=== PATIENT | female | born 1955 | race Caucasian/White ===

== ENCOUNTER 2018-09-26 14:34 | Observation (INO) | payer MEDICAID, OTHER ==
--- NOTE | 2018-09-26 14:59 | CT ---
EXAMINATION: Non contrast CT head. Coronal and sagittal reformats. HISTORY: Pain FINDINGS: No evidence of intra or extra axial hemorrhage, mass, midline shift, or edema. Mild symmetric ventricular prominence. Mild to moderate periventricular subcortical white matter hypodensities. Small clip or coil projects near the terminal left ICA. No hypoattenuation changes in the major vascular territories to suggest acute infarct. No abnormal intracranial calcifications are detected. No evidence of substantial vascular calcifications. Paranasal sinuses and mastoid air cells are well aerated without substantial findings. Pituitary fossa appears unremarkable. Orbits and globes are symmetric. Calvarium is intact. No evidence of skull fracture. IMPRESSION: 1. No acute intracranial findings. 2. Mild to moderate small vessel ischemic changes. 3. 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 Above findings were called to the area at 2:55 PM.
--- NOTE | 2018-09-26 15:17 | CR ---
EXAMINATION: Portable chest radiograph. HISTORY: Shortness of breath. Comparison: 09/27/2012. FINDINGS: The trachea is midline. The cardiomediastinal silhouette is within normal limits. No pulmonary infiltrates, effusions or pneumothorax. Calcified granuloma within the left apex. Osseous structures appear unremarkable. IMPRESSION: No acute cardiopulmonary process.
[2018-09-26 15:33] LABS: CHLORIDE,CL 109 mmol/L (98-107); SODIUM,NA 144 mmol/L (136-145)
[2018-09-26] MEDS: Sodium Chloride 0.9% 1,000 ML IV SCH (16:13)
[2018-09-26] MEDS ORDERED: LORazepam 2 MG/ML SDV IVPUSH ONE (16:27)
[2018-09-26] MEDS ORDERED: Scopolamine 1.5 MG Transdermal Patch TRDERM PRN (16:28)
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
[2018-09-26] MEDS ORDERED: Ondansetron 4 MG/2 ML SDV IVPUSH PRN (17:41)
[2018-09-26] MEDS ORDERED: LORazepam 2 MG/ML SDV IVPUSH PRN (17:51)
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
[2018-09-26] MEDS: Famotidine 20 MG Tab PO SCH (21:20)
[2018-09-26] MEDS: Carvedilol 3.125 MG Tab PO SCH (21:20)
[2018-09-26] MEDS: oxyCODONE 5 MG Tab PO PRN (21:20)
[2018-09-27] MEDS: Sodium Chloride 0.9% 1,000 ML IV SCH ×2 (01:35→06:31)
[2018-09-27] MEDS: oxyCODONE 5 MG Tab PO PRN ×2 (01:35→09:58)
[2018-09-27] MEDS ORDERED: Levothyroxine 25 MCG Tab PO SCH (07:30)
--- NOTE | 2018-09-27 09:28 | PCM.PN ---
<José Antonio Mejia - Last Filed: 09/27/18 09:26> - General Info Date of Service: 09/27/18 Subjective Update: Feels better today, citing improvement in headache, nausea vomiting. No new focal findings. - Review of Systems General: Reports: Other (negative except for hpi) - Patient Data Vitals - Most Recent: Last Vital Signs Temp 36.2 C 09/27/18 08:02 Pulse 67 09/27/18 08:02 Resp 16 09/27/18 08:02 BP 111/54 L 09/27/18 08:02 Pulse Ox 97 09/27/18 08:02 Weight - Most Recent: 69.3 kg I&O - Last 24 Hours: Intake & Output 09/26/18 09/27/18 09/27/18 22:59 06:59 14:59 Intake Total 100 Output Total 300 Balance -200 Lab Results Last 24 Hours: Laboratory Results - last 24 hr 09/26/18 09/26/18 09/26/18 Range/Units 14:38 14:38 14:38 WBC 7.41 (4.0-11.0) K/uL RBC 4.05 L (4.30-5.90) M/uL Hgb 11.9 L (12.0-16.0) g/dL Hct 35.3 L (36.0-46.0) % MCV 87.2 (80.0-98.0) fL MCH 29.4 (27.0-32.0) pg MCHC 33.7 (31.0-37.0) g/dL RDW Std Deviation 46.1 (28.0-62.0) fl RDW Coeff of Genny 15 (11.0-15.0) % Plt Count 256 (150-400) K/uL MPV 10.70 (7.40-12.00) fL Neut % (Auto) 51.3 (48.0-80.0) % Lymph % (Auto) 38.6 (16.0-40.0) % [place] % (Auto) 6.7 (0.0-15.0) % Eos % (Auto) 3.1 (0.0-7.0) % Baso % (Auto) 0.3 (0.0-1.5) % Neut # (Auto) 3.8 (1.4-5.7) K/uL Lymph # (Auto) 2.9 H (0.6-2.4) K/uL [place] # (Auto) 0.5 (0.0-0.8) K/uL Eos # (Auto) 0.2 (0.0-0.7) K/uL Baso # (Auto) 0.0 (0.0-0.1) K/uL Nucleated RBC % 0.0 /100WBC Nucleated RBCs # 0 K/uL INR 1.01 Sodium 144 (136-145) mmol/L Potassium 4.5 (3.5-5.1) mmol/L Chloride 109 H (98-107) mmol/L Carbon Dioxide 22.9 (21.0-32.0) mmol/L BUN 24 H (7.0-18.0) mg/dL Creatinine 1.7 H (0.6-1.0) mg/dL Est Cr Clr Drug Dosing TNP Estimated GFR (MDRD) 30.6 ml/min Glucose 112 H (74-106) mg/dL Calcium 9.4 (8.5-10.1) mg/dL Total Bilirubin 0.3 (0.2-1.0) mg/dL AST 18 (15-37) IU/L ALT 27 (14-63) IU/L Alkaline Phosphatase 104 (46-116) U/L Troponin I < 0.050 (0.000-0.056) ng/mL Total Protein 7.9 (6.4-8.2) g/dL Albumin 4.0 (3.4-5.0) g/dL Globulin 3.9 (2.6-4.0) g/dL Albumin/Globulin Ratio 1.0 (0.9-1.6) Triglycerides (0-200) mg/dL Cholesterol (50-200) mg/dL LDL Cholesterol, Calc (60-180) mg/dL VLDL Cholesterol (5-55) mg/dL HDL Cholesterol (40-60) mg/dL Cholesterol/HDL Ratio (3.3-6.0) Urine Color Urine Appearance Urine pH (5.0-8.0) Ur Specific [place] (1.001-1.035) Urine Protein (NEGATIVE) mg/dL Urine Glucose (UA) (NEGATIVE) mg/dL Urine Ketones (NEGATIVE) mg/dL Urine Occult Blood (NEGATIVE) Urine Nitrite (NEGATIVE) Urine Bilirubin (NEGATIVE) Urine Urobilinogen (<2.0) EU/dL Ur Leukocyte Esterase (NEGATIVE) Urine Opiates Screen (NEGATIVE) Ur Oxycodone Screen (NEGATIVE) Urine Methadone Screen (NEGATIVE) Ur Barbiturates Screen (NEGATIVE) Ur Phencyclidine Scrn (NEGATIVE) Ur Amphetamine Screen (NEGATIVE) U Methamphetamines Scrn (NEGATIVE) U Benzodiazepines Scrn (NEGATIVE) U Cocaine Metab Screen (NEGATIVE) U Marijuana (THC) Screen (NEGATIVE) Ethyl Alcohol mg/dL 09/26/18 09/26/18 09/26/18 Range/Units 14:38 15:17 15:17 WBC (4.0-11.0) K/uL RBC (4.30-5.90) M/uL Hgb (12.0-16.0) g/dL Hct (36.0-46.0) % MCV (80.0-98.0) fL MCH (27.0-32.0) pg MCHC (31.0-37.0) g/dL RDW Std Deviation (28.0-62.0) fl RDW Coeff of Genny (11.0-15.0) % Plt Count (150-400) K/uL MPV (7.40-12.00) fL Neut % (Auto) (48.0-80.0) % Lymph % (Auto) (16.0-40.0) % [place] % (Auto) (0.0-15.0) % Eos % (Auto) (0.0-7.0) % Baso % (Auto) (0.0-1.5) % Neut # (Auto) (1.4-5.7) K/uL Lymph # (Auto) (0.6-2.4) K/uL [place] # (Auto) (0.0-0.8) K/uL Eos # (Auto) (0.0-0.7) K/uL Baso # (Auto) (0.0-0.1) K/uL Nucleated RBC % /100WBC Nucleated RBCs # K/uL INR Sodium (136-145) mmol/L Potassium (3.5-5.1) mmol/L Chloride (98-107) mmol/L Carbon Dioxide (21.0-32.0) mmol/L BUN (7.0-18.0) mg/dL Creatinine (0.6-1.0) mg/dL Est Cr Clr Drug Dosing Estimated GFR (MDRD) ml/min Glucose (74-106) mg/dL Calcium (8.5-10.1) mg/dL Total Bilirubin (0.2-1.0) mg/dL AST (15-37) IU/L ALT (14-63) IU/L Alkaline Phosphatase (46-116) U/L Troponin I (0.000-0.056) ng/mL Total Protein (6.4-8.2) g/dL Albumin (3.4-5.0) g/dL Globulin (2.6-4.0) g/dL Albumin/Globulin Ratio (0.9-1.6) Triglycerides (0-200) mg/dL Cholesterol (50-200) mg/dL LDL Cholesterol, Calc (60-180) mg/dL VLDL Cholesterol (5-55) mg/dL HDL Cholesterol (40-60) mg/dL Cholesterol/HDL Ratio (3.3-6.0) Urine Color YELLOW Urine Appearance CLEAR Urine pH 7.0 (5.0-8.0) Ur Specific [place] <= 1.005 (1.001-1.035) Urine Protein NEGATIVE (NEGATIVE) mg/dL Urine Glucose (UA) NEGATIVE (NEGATIVE) mg/dL Urine Ketones NEGATIVE (NEGATIVE) mg/dL Urine Occult Blood NEGATIVE (NEGATIVE) Urine Nitrite NEGATIVE (NEGATIVE) Urine Bilirubin NEGATIVE (NEGATIVE) Urine Urobilinogen 0.2 (<2.0) EU/dL Ur Leukocyte Esterase NEGATIVE (NEGATIVE) Urine Opiates Screen NEGATIVE (NEGATIVE) Ur Oxycodone Screen NEGATIVE (NEGATIVE) Urine Methadone Screen NEGATIVE (NEGATIVE) Ur Barbiturates Screen NEGATIVE (NEGATIVE) Ur Phencyclidine Scrn NEGATIVE (NEGATIVE) Ur Amphetamine Screen NEGATIVE (NEGATIVE) U Methamphetamines Scrn NEGATIVE (NEGATIVE) U Benzodiazepines Scrn NEGATIVE (NEGATIVE) U Cocaine Metab Screen NEGATIVE (NEGATIVE) U Marijuana (THC) Screen NEGATIVE (NEGATIVE) Ethyl Alcohol < 3.0 mg/dL 09/27/18 Range/Units 05:40 WBC (4.0-11.0) K/uL RBC (4.30-5.90) M/uL Hgb (12.0-16.0) g/dL Hct (36.0-46.0) % MCV (80.0-98.0) fL MCH (27.0-32.0) pg MCHC (31.0-37.0) g/dL RDW Std Deviation (28.0-62.0) fl RDW Coeff of Genny (11.0-15.0) % Plt Count (150-400) K/uL MPV (7.40-12.00) fL Neut % (Auto) (48.0-80.0) % Lymph % (Auto) (16.0-40.0) % [place] % (Auto) (0.0-15.0) % Eos % (Auto) (0.0-7.0) % Baso % (Auto) (0.0-1.5) % Neut # (Auto) (1.4-5.7) K/uL Lymph # (Auto) (0.6-2.4) K/uL [place] # (Auto) (0.0-0.8) K/uL Eos # (Auto) (0.0-0.7) K/uL Baso # (Auto) (0.0-0.1) K/uL Nucleated RBC % /100WBC Nucleated RBCs # K/uL INR Sodium 145 (136-145) mmol/L Potassium 4.6 (3.5-5.1) mmol/L Chloride 112 H (98-107) mmol/L Carbon Dioxide 24.5 (21.0-32.0) mmol/L BUN 24 H (7.0-18.0) mg/dL Creatinine 1.5 H (0.6-1.0) mg/dL Est Cr Clr Drug Dosing 36.87 Estimated GFR (MDRD) 35.3 ml/min Glucose 94 (74-106) mg/dL Calcium 8.7 (8.5-10.1) mg/dL Total Bilirubin (0.2-1.0) mg/dL AST (15-37) IU/L ALT (14-63) IU/L Alkaline Phosphatase (46-116) U/L Troponin I (0.000-0.056) ng/mL Total Protein (6.4-8.2) g/dL Albumin (3.4-5.0) g/dL Globulin (2.6-4.0) g/dL Albumin/Globulin Ratio (0.9-1.6) Triglycerides 154 (0-200) mg/dL Cholesterol 200 (50-200) mg/dL LDL Cholesterol, Calc 129 (60-180) mg/dL VLDL Cholesterol 30 (5-55) mg/dL HDL Cholesterol 40 (40-60) mg/dL Cholesterol/HDL Ratio 5.0 (3.3-6.0) Urine Color Urine Appearance Urine pH (5.0-8.0) Ur Specific [place] (1.001-1.035) Urine Protein (NEGATIVE) mg/dL Urine Glucose (UA) (NEGATIVE) mg/dL Urine Ketones (NEGATIVE) mg/dL Urine Occult Blood (NEGATIVE) Urine Nitrite (NEGATIVE) Urine Bilirubin (NEGATIVE) Urine Urobilinogen (<2.0) EU/dL Ur Leukocyte Esterase (NEGATIVE) Urine Opiates Screen (NEGATIVE) Ur Oxycodone Screen (NEGATIVE) Urine Methadone Screen (NEGATIVE) Ur Barbiturates Screen (NEGATIVE) Ur Phencyclidine Scrn (NEGATIVE) Ur Amphetamine Screen (NEGATIVE) U Methamphetamines Scrn (NEGATIVE) U Benzodiazepines Scrn (NEGATIVE) U Cocaine Metab Screen (NEGATIVE) U Marijuana (THC) Screen (NEGATIVE) Ethyl Alcohol mg/dL Med Orders - Current: Current Medications Amlodipine Besylate (Norvasc) 10 mg PO BEDTIME [facility] Carvedilol (Coreg) 3.125 mg PO BID [facility] Last Admin: 09/26/18 21:20 Dose: 3.125 mg Famotidine (Pepcid) 20 mg PO BID [facility] Last Admin: 09/26/18 21:20 Dose: 20 mg Sodium Chloride (Normal Saline) 1,000 mls @ 125 mls/hr IV STAT [facility] Last Admin: 09/27/18 06:31 Dose: 125 mls/hr Levothyroxine Sodium (Levothyroxine) 25 mcg PO ACBREAKFAST [facility] Last Admin: 09/27/18 06:31 Dose: 25 mcg Lisinopril (Prinivil) 20 mg PO BID [facility] Lorazepam (Ativan) 0.5 mg IVPUSH Q4H PRN PRN Reason: Anxiety Ondansetron HCl (Zofran) 4 mg IVPUSH Q4H PRN PRN Reason: Nausea Oxycodone HCl (Oxycodone) 5 mg PO Q4H PRN PRN Reason: Pain Last Admin: 09/27/18 01:35 Dose: 5 mg Scopolamine (Transderm-Scop) 1.5 mg TRDERM Q72H PRN PRN Reason: Dizziness Last Admin: 09/26/18 17:46 Dose: 1.5 mg Discontinued Medications Lorazepam (Ativan) 0.5 mg IVPUSH ONETIME ONE Stop: 09/26/18 16:28 Last Admin: 09/26/18 16:54 Dose: 0.5 mg - Exam General: Alert, Oriented HEENT: Pupils Equal, Pupils Reactive, EOMI, Mucous Membr. Moist/[place] Lungs: Clear to Auscultation, Normal Respiratory Effort Cardiovascular: Regular Rate, Regular Rhythm GI/Abdominal Exam: Normal Bowel Sounds, Soft, Non-Tender, No Organomegaly, No Distention, No Abnormal Bruit, No Mass, Pelvis Stable Peripheral Pulses: 2+: Dorsalis Pedis (L), Dorsalis Pedis (R) Neurological: No New Focal Deficit Psy/Mental Status: Alert, Normal Affect, Normal Mood - Problem List Review Problem List Initiated/Reviewed/Updated: Yes - My Orders Last 24 Hours: My Active Orders 09/26/18 17:36 Brain wo Cont [MR] Stat 09/26/18 17:41 Antiembolic Devices [RC] PER UNIT ROUTINE Cardiac Monitoring [RC] CONTINUOUS Oxygen Therapy [RC] PRN Up With Assistance [RC] ASDIRECTED VTE/DVT Education [RC] PER UNIT ROUTINE Vital Signs [RC] Q4H Ondansetron [Zofran] 4 mg IVPUSH Q4H PRN Sequential Compression Device [OM.PC] Per Unit Routine 09/26/18 17:51 LORazepam [Ativan] 0.5 mg IVPUSH Q4H PRN 09/26/18 Dinner Regular Diet [DIET] - Plan Plan:: Assessment: #1. Headache #2. Anxiety #3. History of hemorrhagic stroke #4. Ambulatory dysfunction #5. Generalized weakness #6. History of HTN, hemorrhagic stroke #7. Normal pressure hydrocephalus Plan: #1. Given the patients endovascular coiling, will have to get written confirmation from her previous facility that her coiling is compatible with MRI. Once obtained, will go ahead with MRI and manage accordingly. #2. Restart home meds <Ronald Peña - Last Filed: 09/27/18 09:32> - General Info Admission Dx/Problem (Free Text): I have seen and examined to patient independently of manager medical writing, José Antonio Mejia MD. I have discussed the case for care of this patient with him. I have reviewed and approve of the plan of care as outlined by manager medical writing.. Please see orders. - Patient Data Vitals - Most Recent: Last Vital Signs Temp 36.2 C 09/27/18 08:02 Pulse 67 09/27/18 08:02 Resp 16 09/27/18 08:02 BP 111/54 L 09/27/18 08:02 Pulse Ox 97 09/27/18 08:02 I&O - Last 24 Hours: Intake & Output 09/26/18 09/27/18 09/27/18 22:59 06:59 14:59 Intake Total 100 Output Total 300 Balance -200 Lab Results Last 24 Hours: Laboratory Results - last 24 hr 09/26/18 09/26/18 09/26/18 Range/Units 14:38 14:38 14:38 WBC 7.41 (4.0-11.0) K/uL RBC 4.05 L (4.30-5.90) M/uL Hgb 11.9 L (12.0-16.0) g/dL Hct 35.3 L (36.0-46.0) % MCV 87.2 (80.0-98.0) fL MCH 29.4 (27.0-32.0) pg MCHC 33.7 (31.0-37.0) g/dL RDW Std Deviation 46.1 (28.0-62.0) fl RDW Coeff of Genny 15 (11.0-15.0) % Plt Count 256 (150-400) K/uL MPV 10.70 (7.40-12.00) fL Neut % (Auto) 51.3 (48.0-80.0) % Lymph % (Auto) 38.6 (16.0-40.0) % [place] % (Auto) 6.7 (0.0-15.0) % Eos % (Auto) 3.1 (0.0-7.0) % Baso % (Auto) 0.3 (0.0-1.5) % Neut # (Auto) 3.8 (1.4-5.7) K/uL Lymph # (Auto) 2.9 H (0.6-2.4) K/uL [place] # (Auto) 0.5 (0.0-0.8) K/uL Eos # (Auto) 0.2 (0.0-0.7) K/uL Baso # (Auto) 0.0 (0.0-0.1) K/uL Nucleated RBC % 0.0 /100WBC Nucleated RBCs # 0 K/uL INR 1.01 Sodium 144 (136-145) mmol/L Potassium 4.5 (3.5-5.1) mmol/L Chloride 109 H (98-107) mmol/L Carbon Dioxide 22.9 (21.0-32.0) mmol/L BUN 24 H (7.0-18.0) mg/dL Creatinine 1.7 H (0.6-1.0) mg/dL Est Cr Clr Drug Dosing TNP Estimated GFR (MDRD) 30.6 ml/min Glucose 112 H (74-106) mg/dL Calcium 9.4 (8.5-10.1) mg/dL Total Bilirubin 0.3 (0.2-1.0) mg/dL AST 18 (15-37) IU/L ALT 27 (14-63) IU/L Alkaline Phosphatase 104 (46-116) U/L Troponin I < 0.050 (0.000-0.056) ng/mL Total Protein 7.9 (6.4-8.2) g/dL Albumin 4.0 (3.4-5.0) g/dL Globulin 3.9 (2.6-4.0) g/dL Albumin/Globulin Ratio 1.0 (0.9-1.6) Triglycerides (0-200) mg/dL Cholesterol (50-200) mg/dL LDL Cholesterol, Calc (60-180) mg/dL VLDL Cholesterol (5-55) mg/dL HDL Cholesterol (40-60) mg/dL Cholesterol/HDL Ratio (3.3-6.0) Urine Color Urine Appearance Urine pH (5.0-8.0) Ur Specific [place] (1.001-1.035) Urine Protein (NEGATIVE) mg/dL Urine Glucose (UA) (NEGATIVE) mg/dL Urine Ketones (NEGATIVE) mg/dL Urine Occult Blood (NEGATIVE) Urine Nitrite (NEGATIVE) Urine Bilirubin (NEGATIVE) Urine Urobilinogen (<2.0) EU/dL Ur Leukocyte Esterase (NEGATIVE) Urine Opiates Screen (NEGATIVE) Ur Oxycodone Screen (NEGATIVE) Urine Methadone Screen (NEGATIVE) Ur Barbiturates Screen (NEGATIVE) Ur Phencyclidine Scrn (NEGATIVE) Ur Amphetamine Screen (NEGATIVE) U Methamphetamines Scrn (NEGATIVE) U Benzodiazepines Scrn (NEGATIVE) U Cocaine Metab Screen (NEGATIVE) U Marijuana (THC) Screen (NEGATIVE) Ethyl Alcohol mg/dL 09/26/18 09/26/18 09/26/18 Range/Units 14:38 15:17 15:17 WBC (4.0-11.0) K/uL RBC (4.30-5.90) M/uL Hgb (12.0-16.0) g/dL Hct (36.0-46.0) % MCV (80.0-98.0) fL MCH (27.0-32.0) pg MCHC (31.0-37.0) g/dL RDW Std Deviation (28.0-62.0) fl RDW Coeff of Genny (11.0-15.0) % Plt Count (150-400) K/uL MPV (7.40-12.00) fL Neut % (Auto) (48.0-80.0) % Lymph % (Auto) (16.0-40.0) % [place] % (Auto) (0.0-15.0) % Eos % (Auto) (0.0-7.0) % Baso % (Auto) (0.0-1.5) % Neut # (Auto) (1.4-5.7) K/uL Lymph # (Auto) (0.6-2.4) K/uL [place] # (Auto) (0.0-0.8) K/uL Eos # (Auto) (0.0-0.7) K/uL Baso # (Auto) (0.0-0.1) K/uL Nucleated RBC % /100WBC Nucleated RBCs # K/uL INR Sodium (136-145) mmol/L Potassium (3.5-5.1) mmol/L Chloride (98-107) mmol/L Carbon Dioxide (21.0-32.0) mmol/L BUN (7.0-18.0) mg/dL Creatinine (0.6-1.0) mg/dL Est Cr Clr Drug Dosing Estimated GFR (MDRD) ml/min Glucose (74-106) mg/dL Calcium (8.5-10.1) mg/dL Total Bilirubin (0.2-1.0) mg/dL AST (15-37) IU/L ALT (14-63) IU/L Alkaline Phosphatase (46-116) U/L Troponin I (0.000-0.056) ng/mL Total Protein (6.4-8.2) g/dL Albumin (3.4-5.0) g/dL Globulin (2.6-4.0) g/dL Albumin/Globulin Ratio (0.9-1.6) Triglycerides (0-200) mg/dL Cholesterol (50-200) mg/dL LDL Cholesterol, Calc (60-180) mg/dL VLDL Cholesterol (5-55) mg/dL HDL Cholesterol (40-60) mg/dL Cholesterol/HDL Ratio (3.3-6.0) Urine Color YELLOW Urine Appearance CLEAR Urine pH 7.0 (5.0-8.0) Ur Specific [place] <= 1.005 (1.001-1.035) Urine Protein NEGATIVE (NEGATIVE) mg/dL Urine Glucose (UA) NEGATIVE (NEGATIVE) mg/dL Urine Ketones NEGATIVE (NEGATIVE) mg/dL Urine Occult Blood NEGATIVE (NEGATIVE) Urine Nitrite NEGATIVE (NEGATIVE) Urine Bilirubin NEGATIVE (NEGATIVE) Urine Urobilinogen 0.2 (<2.0) EU/dL Ur Leukocyte Esterase NEGATIVE (NEGATIVE) Urine Opiates Screen NEGATIVE (NEGATIVE) Ur Oxycodone Screen NEGATIVE (NEGATIVE) Urine Methadone Screen NEGATIVE (NEGATIVE) Ur Barbiturates Screen NEGATIVE (NEGATIVE) Ur Phencyclidine Scrn NEGATIVE (NEGATIVE) Ur Amphetamine Screen NEGATIVE (NEGATIVE) U Methamphetamines Scrn NEGATIVE (NEGATIVE) U Benzodiazepines Scrn NEGATIVE (NEGATIVE) U Cocaine Metab Screen NEGATIVE (NEGATIVE) U Marijuana (THC) Screen NEGATIVE (NEGATIVE) Ethyl Alcohol < 3.0 mg/dL 09/27/18 Range/Units 05:40 WBC (4.0-11.0) K/uL RBC (4.30-5.90) M/uL Hgb (12.0-16.0) g/dL Hct (36.0-46.0) % MCV (80.0-98.0) fL MCH (27.0-32.0) pg MCHC (31.0-37.0) g/dL RDW Std Deviation (28.0-62.0) fl RDW Coeff of Genny (11.0-15.0) % Plt Count (150-400) K/uL MPV (7.40-12.00) fL Neut % (Auto) (48.0-80.0) % Lymph % (Auto) (16.0-40.0) % [place] % (Auto) (0.0-15.0) % Eos % (Auto) (0.0-7.0) % Baso % (Auto) (0.0-1.5) % Neut # (Auto) (1.4-5.7) K/uL Lymph # (Auto) (0.6-2.4) K/uL [place] # (Auto) (0.0-0.8) K/uL Eos # (Auto) (0.0-0.7) K/uL Baso # (Auto) (0.0-0.1) K/uL Nucleated RBC % /100WBC Nucleated RBCs # K/uL INR Sodium 145 (136-145) mmol/L Potassium 4.6 (3.5-5.1) mmol/L Chloride 112 H (98-107) mmol/L Carbon Dioxide 24.5 (21.0-32.0) mmol/L BUN 24 H (7.0-18.0) mg/dL Creatinine 1.5 H (0.6-1.0) mg/dL Est Cr Clr Drug Dosing 36.87 Estimated GFR (MDRD) 35.3 ml/min Glucose 94 (74-106) mg/dL Calcium 8.7 (8.5-10.1) mg/dL Total Bilirubin (0.2-1.0) mg/dL AST (15-37) IU/L ALT (14-63) IU/L Alkaline Phosphatase (46-116) U/L Troponin I (0.000-0.056) ng/mL Total Protein (6.4-8.2) g/dL Albumin (3.4-5.0) g/dL Globulin (2.6-4.0) g/dL Albumin/Globulin Ratio (0.9-1.6) Triglycerides 154 (0-200) mg/dL Cholesterol 200 (50-200) mg/dL LDL Cholesterol, Calc 129 (60-180) mg/dL VLDL Cholesterol 30 (5-55) mg/dL HDL Cholesterol 40 (40-60) mg/dL Cholesterol/HDL Ratio 5.0 (3.3-6.0) Urine Color Urine Appearance Urine pH (5.0-8.0) Ur Specific [place] (1.001-1.035) Urine Protein (NEGATIVE) mg/dL Urine Glucose (UA) (NEGATIVE) mg/dL Urine Ketones (NEGATIVE) mg/dL Urine Occult Blood (NEGATIVE) Urine Nitrite (NEGATIVE) Urine Bilirubin (NEGATIVE) Urine Urobilinogen (<2.0) EU/dL Ur Leukocyte Esterase (NEGATIVE) Urine Opiates Screen (NEGATIVE) Ur Oxycodone Screen (NEGATIVE) Urine Methadone Screen (NEGATIVE) Ur Barbiturates Screen (NEGATIVE) Ur Phencyclidine Scrn (NEGATIVE) Ur Amphetamine Screen (NEGATIVE) U Methamphetamines Scrn (NEGATIVE) U Benzodiazepines Scrn (NEGATIVE) U Cocaine Metab Screen (NEGATIVE) U Marijuana (THC) Screen (NEGATIVE) Ethyl Alcohol mg/dL Med Orders - Current: Current Medications Amlodipine Besylate (Norvasc) 10 mg PO BEDTIME [facility] Carvedilol (Coreg) 3.125 mg PO BID [facility] Last Admin: 09/26/18 21:20 Dose: 3.125 mg Famotidine (Pepcid) 20 mg PO BID [facility] Last Admin: 09/26/18 21:20 Dose: 20 mg Sodium Chloride (Normal Saline) 1,000 mls @ 125 mls/hr IV STAT [facility] Last Admin: 09/27/18 06:31 Dose: 125 mls/hr Levothyroxine Sodium (Levothyroxine) 25 mcg PO ACBREAKFAST [facility] Last Admin: 09/27/18 06:31 Dose: 25 mcg Lisinopril (Prinivil) 20 mg PO BID [facility] Lorazepam (Ativan) 0.5 mg IVPUSH Q4H PRN PRN Reason: Anxiety Ondansetron HCl (Zofran) 4 mg IVPUSH Q4H PRN PRN Reason: Nausea Oxycodone HCl (Oxycodone) 5 mg PO Q4H PRN PRN Reason: Pain Last Admin: 09/27/18 01:35 Dose: 5 mg Scopolamine (Transderm-Scop) 1.5 mg TRDERM Q72H PRN PRN Reason: Dizziness Last Admin: 09/26/18 17:46 Dose: 1.5 mg Discontinued Medications Lorazepam (Ativan) 0.5 mg IVPUSH ONETIME ONE Stop: 09/26/18 16:28 Last Admin: 09/26/18 16:54 Dose: 0.5 mg - My Orders Last 24 Hours: My Active Orders 09/26/18 18:07 Telemetry Monitoring [Cardiac Monitoring] [RC] Q8H 09/26/18 18:53 Obtain Past Medical Record [OM.PC] Routine 09/26/18 21:03 oxyCODONE 5 mg PO Q4H PRN 09/26/18 21:15 Carvedilol [Coreg] 3.125 mg PO BID Famotidine [Pepcid] 20 mg PO BID 09/27/18 07:30 Levothyroxine 25 mcg PO ACBREAKFAST 09/27/18 21:00 amLODIPine [Norvasc] 10 mg PO BEDTIME 09/27/18 21:15 Lisinopril [Prinivil] 20 mg PO BID
[2018-09-27] MEDS: Carvedilol 3.125 MG Tab PO SCH (09:41)
[2018-09-27] MEDS: Famotidine 20 MG Tab PO SCH (09:41)
--- NOTE | 2018-09-27 13:51 | MR ---
EXAMINATION: MR of the head without contrast. TECHNIQUE: Multiplanar and multisequence imaging of the head without intravenous contrast. Diffusion weighted sequences were performed. HISTORY: Headache. FINDINGS: The cerebral hemispheres and deep nuclei are without hemorrhage, mass, edema or atrophy. Bilateral T2 FLAIR hyperintensities in the white matter likely small areas of chronic ischemia. No evidence for restricted diffusion. No extraaxial collections or hemorrhage. Ventricular system is of normal size and configuration without hydrocephalus. Brainstem and cerebellum are without hemorrhage, mass, edema, gliosis or atrophy. Carotid basilar artery flow voids are intact. The otomastoid airspaces are clear. No internal auditory canal or cerebellopontine angle masses. Small mucous retention cyst within the right maxillary sinus. Craniocervical junction is unremarkable. IMPRESSION: 1. No acute intracranial findings. 2. Moderate small vessel ischemic changes.
--- NOTE | 2018-09-27 16:05 | PCM.DCSUM1 ---
<José Antonio Mejia - Last Filed: 09/27/18 16:01> Discharge Summary - Hospital Course Free Text/Narrative:: Admission date: 09/26/2018 Discharge date: 09/27/2018 Admission dx: #1. Headache #2. Anxiety #3. History of hemorrhagic stroke #4. Ambulatory dysfunction #5. Generalized weakness #6. History of HTN, hemorrhagic stroke #7. Normal pressure hydrocephalus Discharge dx: #1. Headache - improved #2. Anxiety #3. History of hemorrhagic stroke #4. Ambulatory dysfunction #5. Generalized weakness #6. History of HTN, hemorrhagic stroke Hospital course: 63F w/ hx of SAH s/p endovascular coiling in 07/2018 in [place] presented w/ chief complaint of severe headache, anxiety and witnessed LOC w/o trauma prior to presentation. Patient and daughter were concerned about similar symptoms to SAH that had occurred. CT findings were negative - she was admitted for observation. MRI of the brain was obtained which was also unremarkable and didn't show signs of hydrocephalus which was a concern on CT findings. Her episode may be a new onset migraine disorder or possible a seizure event, which the daughter tells me that she does have a recent hx of partial seizures. Patient will need to f/u with neurology for further management. She is currently here for her fathers so this may have been anxiety related. I have sent her home with a temporary prescription for ativan and oxycodone until she sees her provider. Patient was advised to use these medications sparingly and to return should her symptoms re-occur. - Discharge Data Discharge Date: 09/27/18 Discharge Disposition: Home, Self-Care 01 Condition: Fair - Patient Instructions Diet: Usual Diet as Tolerated Activity: As Tolerated Notify Provider of: Fever, Increased Pain, Nausea and/or Vomiting - Discharge Plan Prescriptions/Med Rec: amLODIPine Besylate [Amlodipine Besylate] 10 mg PO BEDTIME 14 Days #14 tablet Carvedilol [Coreg] 3.125 mg PO BID 14 Days #28 tablet Famotidine 20 mg PO BID 14 Days #28 tablet Levothyroxine Sodium [Levo-T] 25 mcg PO ACBREAKFAST 14 Days #14 tablet Lisinopril 20 mg PO Q12H 14 Days #14 tablet LORazepam [Ativan] 0.5 mg PO Q12H PRN 10 Days #20 tablet PRN Reason: Anxiety oxyCODONE 5 mg PO Q6H PRN #15 tablet PRN Reason: Pain Scopolamine [Transderm-Scop] 1.5 mg TRDERM Q72H PRN #5 patch PRN Reason: Dizziness Home Medications: Home Meds Carvedilol [Coreg] 3.125 mg PO BID 14 Days #28 tablet 09/27/18 [Rx] Famotidine 20 mg PO BID 14 Days #28 tablet 09/27/18 [Rx] LORazepam [Ativan] 0.5 mg PO Q12H PRN 10 Days #20 tablet 09/27/18 [Rx] Levothyroxine Sodium [Levo-T] 25 mcg PO ACBREAKFAST 14 Days #14 tablet 09/27/18 [Rx] Lisinopril 20 mg PO Q12H 14 Days #14 tablet 09/27/18 [Rx] Scopolamine [Transderm-Scop] 1.5 mg TRDERM Q72H PRN #5 patch 09/27/18 [Rx] amLODIPine Besylate [Amlodipine Besylate] 10 mg PO BEDTIME 14 Days #14 tablet [Rx] oxyCODONE 5 mg PO Q6H PRN #15 tablet 09/27/18 [Rx] Patient Handouts: Famotidine tablets or gelcaps, Scopolamine skin patches, Oxycodone tablets or capsules, Confusion, Carvedilol tablets, Dehydration, Adult , [id number], Lisinopril tablets, Amlodipine tablets, Lorazepam tablets, Levothyroxine oral capsules - Discharge Summary/Plan Comment DC Time >30 min.: No - Patient Data Vitals - Most Recent: Last Vital Signs Temp 37.7 C 09/27/18 13:00 Pulse 70 09/27/18 13:00 Resp 16 09/27/18 13:00 BP 132/75 09/27/18 13:00 Pulse Ox 96 09/27/18 13:00 Weight - Most Recent: 69.3 kg I&O - Last 24 hours: Intake & Output 09/27/18 09/27/18 09/27/18 06:59 14:59 22:59 Intake Total 294 503 9183 Output Total 300 1100 Balance -200 260 140 Lab Results - Last 24 hrs: Laboratory Results - last 24 hr 09/27/18 Range/Units 05:40 Sodium 145 (136-145) mmol/L Potassium 4.6 (3.5-5.1) mmol/L Chloride 112 H (98-107) mmol/L Carbon Dioxide 24.5 (21.0-32.0) mmol/L BUN 24 H (7.0-18.0) mg/dL Creatinine 1.5 H (0.6-1.0) mg/dL Est Cr Clr Drug Dosing 36.87 mL/min Estimated GFR (MDRD) 35.3 ml/min Glucose 94 (74-106) mg/dL Calcium 8.7 (8.5-10.1) mg/dL Triglycerides 154 (0-200) mg/dL Cholesterol 200 (50-200) mg/dL LDL Cholesterol, Calc 129 (60-180) mg/dL VLDL Cholesterol 30 (5-55) mg/dL HDL Cholesterol 40 (40-60) mg/dL Cholesterol/HDL Ratio 5.0 (3.3-6.0) CONCEPCION Results - Last 24 hrs: Microbiology 09/26/18 15:14 Aerobic Blood Culture - Preliminary Blood - Venous - Lab Draw NO GROWTH AFTER 1 DAY Anaerobic Blood Culture - Preliminary NO GROWTH AFTER 1 DAY 09/26/18 15:02 Aerobic Blood Culture - Preliminary Blood - Venous NO GROWTH AFTER 1 DAY Anaerobic Blood Culture - Preliminary NO GROWTH AFTER 1 DAY Med Orders - Current: Current Medications Amlodipine Besylate (Norvasc) 10 mg PO BEDTIME [facility] Carvedilol (Coreg) 3.125 mg PO BID [facility] Last Admin: 09/27/18 09:41 Dose: 3.125 mg Famotidine (Pepcid) 20 mg PO BID [facility] Last Admin: 09/27/18 09:41 Dose: 20 mg Sodium Chloride (Normal Saline) 1,000 mls @ 125 mls/hr IV STAT [facility] Last Admin: 09/27/18 06:31 Dose: 125 mls/hr Levothyroxine Sodium (Levothyroxine) 25 mcg PO ACBREAKFAST [facility] Last Admin: 09/27/18 06:31 Dose: 25 mcg Lisinopril (Prinivil) 20 mg PO BID [facility] Lorazepam (Ativan) 0.5 mg IVPUSH Q4H PRN PRN Reason: Anxiety Ondansetron HCl (Zofran) 4 mg IVPUSH Q4H PRN PRN Reason: Nausea Oxycodone HCl (Oxycodone) 5 mg PO Q4H PRN PRN Reason: Pain Last Admin: 09/27/18 09:58 Dose: 5 mg Scopolamine (Transderm-Scop) 1.5 mg TRDERM Q72H PRN PRN Reason: Dizziness Last Admin: 09/26/18 17:46 Dose: 1.5 mg Discontinued Medications Lorazepam (Ativan) 0.5 mg IVPUSH ONETIME ONE Stop: 09/26/18 16:28 Last Admin: 09/26/18 16:54 Dose: 0.5 mg <Ronald Peña - Last Filed: 09/27/18 18:40> Discharge Summary - Hospital Course HPI Initial Comments: I have seen and examined to patient independently of medical assistant prn, José Antonio Mejia MD. I have discussed the case for care of this patient with him. I have reviewed and approve of the plan of care as outlined by medical assistant prn.. Please see orders. - Patient Data Vitals - Most Recent: Last Vital Signs Temp 37.7 C 09/27/18 13:00 Pulse 70 09/27/18 13:00 Resp 16 09/27/18 13:00 BP 132/75 09/27/18 13:00 Pulse Ox 96 09/27/18 13:00 I&O - Last 24 hours: Intake & Output 09/27/18 09/27/18 09/27/18 06:59 14:59 22:59 Intake Total 737 444 4615 Output Total 300 1100 Balance -200 260 140 Lab Results - Last 24 hrs: Laboratory Results - last 24 hr 09/27/18 Range/Units 05:40 Sodium 145 (136-145) mmol/L Potassium 4.6 (3.5-5.1) mmol/L Chloride 112 H (98-107) mmol/L Carbon Dioxide 24.5 (21.0-32.0) mmol/L BUN 24 H (7.0-18.0) mg/dL Creatinine 1.5 H (0.6-1.0) mg/dL Est Cr Clr Drug Dosing 36.87 mL/min Estimated GFR (MDRD) 35.3 ml/min Glucose 94 (74-106) mg/dL Calcium 8.7 (8.5-10.1) mg/dL Triglycerides 154 (0-200) mg/dL Cholesterol 200 (50-200) mg/dL LDL Cholesterol, Calc 129 (60-180) mg/dL VLDL Cholesterol 30 (5-55) mg/dL HDL Cholesterol 40 (40-60) mg/dL Cholesterol/HDL Ratio 5.0 (3.3-6.0) CONCEPCION Results - Last 24 hrs: Microbiology 09/26/18 15:14 Aerobic Blood Culture - Preliminary Blood - Venous - Lab Draw NO GROWTH AFTER 1 DAY Anaerobic Blood Culture - Preliminary NO GROWTH AFTER 1 DAY 09/26/18 15:02 Aerobic Blood Culture - Preliminary Blood - Venous NO GROWTH AFTER 1 DAY Anaerobic Blood Culture - Preliminary NO GROWTH AFTER 1 DAY Med Orders - Current: Current Medications Discontinued Medications Amlodipine Besylate (Norvasc) 10 mg PO BEDTIME [facility] Carvedilol (Coreg) 3.125 mg PO BID [facility] Last Admin: 09/27/18 09:41 Dose: 3.125 mg Famotidine (Pepcid) 20 mg PO BID [facility] Last Admin: 09/27/18 09:41 Dose: 20 mg Sodium Chloride (Normal Saline) 1,000 mls @ 125 mls/hr IV STAT [facility] Last Admin: 09/27/18 06:31 Dose: 125 mls/hr Levothyroxine Sodium (Levothyroxine) 25 mcg PO ACBREAKFAST [facility] Last Admin: 09/27/18 06:31 Dose: 25 mcg Lisinopril (Prinivil) 20 mg PO BID [facility] Lorazepam (Ativan) 0.5 mg IVPUSH ONETIME ONE Stop: 09/26/18 16:28 Last Admin: 09/26/18 16:54 Dose: 0.5 mg Lorazepam (Ativan) 0.5 mg IVPUSH Q4H PRN PRN Reason: Anxiety Ondansetron HCl (Zofran) 4 mg IVPUSH Q4H PRN PRN Reason: Nausea Oxycodone HCl (Oxycodone) 5 mg PO Q4H PRN PRN Reason: Pain Last Admin: 09/27/18 09:58 Dose: 5 mg Scopolamine (Transderm-Scop) 1.5 mg TRDERM Q72H PRN PRN Reason: Dizziness Last Admin: 09/26/18 17:46 Dose: 1.5 mg
[2018-09-27] MEDS ORDERED: amLODIPine 5 MG Tab PO SCH (21:00)
[2018-09-27] MEDS ORDERED: Lisinopril 10 MG Tab PO SCH (21:15)
== END 2018-09-27 16:30 | disposition home or self-care (01) ==
LOC: MW.ED 14:34 → MW.MS 17:24
PROVIDERS: ADMIT Internal Medicine; ATTEND Internal Medicine
DX: R51 Headache (principal); R53.1 Weakness; F41.9 Anxiety disorder, unspecified; I10 Essential (primary) hypertension; Z86.73 Personal history of transient ischemic attack (TIA), and cerebral infarction without residual deficits; Z91.041 Radiographic dye allergy status; Z79.899 Other long term (current) drug therapy
CPT/HCPCS: 36415; 70450; 70551; 71045; 80048; 80053; 80061; 80305; 81003; 84484; 85025; 85610; 87040; 93005; 96361; 96374; 99285; A9270; G0378; G0480; J2060; J7040